=== PATIENT | male | born 1985 | race Caucasian/White ===

== ENCOUNTER 2022-04-17 07:28 | Day surgery (SDC) | payer OTHER ==
[~2022-04-17] VITALS: Ht 185.4 cm; Wt 146.0 kg
[2022-04-17] VITALS (169 sets, daily range): BP systolic 99–148; BP diastolic 48–94
--- NOTE | 2022-04-17 07:35 | NUR ---
PT AMBULATED TO ROOM WITH SPOUSE AND MOTHER. PT HAS NAD. PT HAS BEEN ORIENTED TO ROOM, CALL LIGHT AND POC. PT HAS NO QUESTIONS OR CONCERNS AT THIS SARA. PT HAS SAFTEY PRECAUTIONS IN PLACE. PT AWARE TO PUSH CALL LIGHT WHEN IN NEED OF ANY ASSITANCE. WILL CONTINUE TO MONITOR.
[2022-04-17 07:45] LABS: HEMOGLOBIN 14.1 g/dl (14.0-18.0); IMMATURE GRANULOCYTES 1.8 % (0.0-5.0); MEAN CELL VOLUME 88.8 fL CALC (80.0-100.0); MEAN CORPUSCULAR HGB 29.1 pG CALC (26.0-32.0); MEAN CORPUSCULAR HGB CONC 32.8 g/dL CAL (32.0-36.0); NEUT# 4.96 thou/uL (1.82-7.42); RED BLOOD COUNT 4.84 mill/uL (4.70-6.10); RED CELL DISTRI WIDTH 13.8 % (11.5-15.5)
[2022-04-17 07:58] LABS: ALBUMIN 3.9 g/dL (3.2-5.0); ALKALINE PHOSPHATASE 124 u/l (38-126); ANION GAP 9 (6-22 (CALC)); BILIRUBIN, TOTAL 0.5 mg/dL (0.0-1.4); BUN 18 mg/dL (9-20); BUN/CREATININE RATIO 16 (12-20 (CALC)); CARBON DIOXIDE 33 mmol/l (22-30); CHLORIDE 104 mmol/l (95-108); CREATININE 1.1 mg/dL (0.7-1.3); GFR FOR AFR.AMER. > 60 ML/MIN (>=60 (CALC)); GFR OTHER RACES > 60 ML/MIN (>=60 (CALC)); POTASSIUM 4.2 mmol/l (3.5-5.1); SGOT/AST 33 u/l (17-59); SODIUM 142 mmol/l (137-146)
[2022-04-17] MEDS ORDERED: CLONIDINE0.1 MG PO (10:42)
[2022-04-17] MEDS ORDERED: KLONOPIN2 MG PO (10:43)
[2022-04-17] MEDS ORDERED: NALTREXONE50 MG PO (10:43)
--- NOTE | 2022-04-17 11:50 | NUR ---
Induction Note Patient to ANR procedure room. Time out performed at 1150. Patient placed on monitors, Richi hugger, bilateral wrist restraints applied for ET tube protection. Versed 5mg given IV push at 1151 Tourniquet applied to RIGHT arm Lidocaine 100mg given at 1152 IV push followed by Rocoronium 10mg at 1153 IV push and held for 90 seconds. Propofol bolus of 120mg given at 1155 IV push. Succinylcholine 80mg given IV push at 1156. Smooth intubation with 8.0 ETT. Positive CO2. Positive Auscultation for air exchange. Patient placed on ventilator for spontaneous ventilation. Placed on Propofol IV drip at 1157. OG inserted. Positive air on auscultation. Positive gastric content. Stomach washed at this time.
--- NOTE | 2022-04-17 12:10 | NUR ---
OG close note Stomach washed at this time. Naltrexone 75 mg with Clonidine 0.2 mg via OG tube. OG will be clamped for 45 minutes.
--- NOTE | 2022-04-17 12:55 | NUR ---
OG open note OG open at this time. Gastric content draining into drainage bag. OG to drain for 45 minutes. Propofol will be titrated down based on patient.
--- NOTE | 2022-04-17 13:50 | NUR ---
OG close note Stomach washed at this time. Naltrexone 50 mg with Clonidine 0.3 mg via OG tube. OG will be clamped for 45 minutes.
--- NOTE | 2022-04-17 15:20 | NUR ---
OG close note Stomach washed at this time. Naltrexone 25 mg with Clonidine 0.2 mg via OG tube. OG will be clamped for 45 minutes.
--- NOTE | 2022-04-17 16:50 | NUR ---
OG close note Stomach washed at this time. Naltrexone 25 mg with Clonidine 0.3 mg via OG tube. OG will be clamped for 45 minutes.
--- NOTE | 2022-04-17 17:20 | NUR ---
Extubation note Closing medications given Benadryl 50mg IV push, Decadron 10mg IV push,Magnesium 4 grams IV, Zofran 8mg IV push, Octreotide 100mcg SC. Stomach washed out prior to extubation. Suctioned gastric content. OG removed. Patient extubated. Propofol Discontinued. Wrist restraints removed. Richi hugger Removed. See ANR Moderate sedate recovery record for further notes and assessment.
--- NOTE | 2022-04-17 17:40 | NUR ---
RECEIVE PATIENT AND REPORT FROM ARUNA ZAMUDIO. PATIENT IN CPAP 50%. OXIGEN LEVEL 94%. VITAL SIGNS STABLE AT THIS TIME. SAFETY AND FALL PRECAUTIONS IN PLACE. PATIENT CONTINUES TO BE MONITORED AT BEDSIDE.
--- NOTE | 2022-04-17 17:50 | NUR ---
PT TRANSFERRED TO ROOM WITH NONREBREATHER. PT O2 SAT 92%. RT MET IN ROOM AND PLACED PT ON CPAP 10 @ 50% PT AT 98%. PT IS AROUSABLE TO STIMULI. PT HAS FALL PRECAUTIONS IN PLACE. BED ALARM ACTIVE. REPORT GIVEN TO PM RN.
--- NOTE | 2022-04-17 19:11 | NUR ---
RESPIRATORY IN ROOM WITH PATIENT. PATIENT CURRENTLY OBSERVED ON CPAP. PATIENT CAME UP FROM PROCEDURE ON CPAP. INCREASED RESPIRATIONS AT TIMES. MD NOTIFED OF PATIENTS STATUS. PATIENT APPEARS WITH PERIODS OF APNEA. OXYGEN SATS DECREASE TO THE MID 50S. AFTER PATIENT IS INSTRUCTED TO REBREATHE, PATIENT SATS BACK UP TO 100%. ALERT, ABLE TO MAKE NEEDS KNOWN. MD DC CPAP. PATIENT ON O2 VIA NC, KEEP O2 SAT GREATER THAN OR EQUAL TO 90%. BED REMAINS IN LOW POSITION. BED ALARM ACTIVE FOR SAFETY REASONS.
--- NOTE | 2022-04-17 19:32 | NUR ---
PER TO PLACE CPAP ON STANDBY, CURRENTLY ON 4 LITERS OF OXYGEN.
--- NOTE | 2022-04-17 23:08 | NUR ---
CALLED MD AND UPDATED ON PATIENTS OXYGEN SATS DECREASING DUE TO APNEA. WHEN PATIENT IS REDIRECTED TO TAKE SLOW DEEP BREATHS OXYGEN SAT INCREASES. MD ADVISED FOR PATIENT TO TRY TO LAY ON HIS SIDE. NO NEW ORDERS AT THIS TIME.
--- NOTE | 2022-04-17 23:13 | NUR ---
CALLED RT ON PATIENTS STATUS. UPDATED THAT PATIENT REMAINS WITH PERIODS OF APNEA WITH OXYGEN SATS DECREASING AT TIMES. WHEN PATIENT IS INSTRUCTED TO REBREATHE OXYGEN GOES BACK UP TO HIGH 90S-100%.
--- NOTE | 2022-04-18 00:02 | NUR ---
PATIENT ON NONREBREATHER PER RT. OXYGEN SATURATIONS HAVE BEEN MAINTAINING. NO DISTRESS NOTED. PATIENT TOLERATING WELL.
--- NOTE | 2022-04-18 00:02 | NUR ---
SPOKE WITH RT ON PATIENTS STATUS STAYING THE SAME. PATIENT REMAINS ALERT AND ABLE TO MAKE NEEDS KNOWN. PATIENT APPEARS COMFORTABLE AT THIS TIME. BED REMAINS IN LOW POSITION. BED ALARM ACTIVE.
--- NOTE | 2022-04-18 01:19 | NUR ---
PATIENT ASKED TO USE THE RESTROOM IN ROOM. AMBULATED TO BATHROOM WITH SUPERVISION. VOIDED LARGE AMOUNT. PATIENT ASKED TO GO IN HIS LUGGAGE BAG TO PUT ON CLOTHES. REDIRECTED PATIENT THAT THEY WEAR GOWNS POST PROCEDURE DUE TO THE CHANCE OF NEEDING TO BE CLEANED UP DUE TOO POSSIBLE SOILING OR EMESIS. PATIENT UNDERSTOOD.
[2022-04-18 03:46] VITALS: BP 123/66
--- NOTE | 2022-04-18 03:49 | NUR ---
PATIENT SLEEPING ON HIS LEFT SIDE. NO SIGNS OF DISTRESS NOTED. VS REMAIN STABLE. REMAINS ON O2. BED REMAINS IN LOW POSITION. BED ALARM ACTIVE FOR SAFETY REASONS.
[2022-04-18 05:12] LABS: HEMATOCRIT 42.3 % (39.0-50.0); HEMOGLOBIN 14.3 g/dl (14.0-18.0); IMMATURE GRANULOCYTES 0.5 % (0.0-5.0); MEAN CELL VOLUME 84.6 fL CALC (80.0-100.0); MEAN CORPUSCULAR HGB 28.6 pG CALC (26.0-32.0); MEAN CORPUSCULAR HGB CONC 33.8 g/dL CAL (32.0-36.0); NEUT# 12.33 thou/uL (1.82-7.42); RED CELL DISTRI WIDTH 13.1 % (11.5-15.5)
[2022-04-18 05:36] LABS: ALBUMIN 3.4 g/dL (3.2-5.0); ALKALINE PHOSPHATASE 125 u/l (38-126); ANION GAP 10 (6-22 (CALC)); BUN 17 mg/dL (9-20); BUN/CREATININE RATIO 16 (12-20 (CALC)); CARBON DIOXIDE 27 mmol/l (22-30); CHLORIDE 106 mmol/l (95-108); GFR FOR AFR.AMER. > 60 ML/MIN (>=60 (CALC)); GFR OTHER RACES > 60 ML/MIN (>=60 (CALC)); MAGNESIUM 2.4 mg/dL (1.6-2.3); POTASSIUM 4.1 mmol/l (3.5-5.1); SGOT/AST 28 u/l (17-59); SODIUM 140 mmol/l (137-146); TOTAL PROTEIN 6.1 g/dL (6.3-8.2)
[2022-04-18 05:40] LABS: BILIRUBIN, TOTAL 0.8 mg/dL (0.0-1.4)
--- NOTE | 2022-04-18 06:29 | NUR ---
PATIENT REMAINS ON NONREBREATHER DUE TO PERIODS OF APNEA. OXYGEN SATS REMAIN STABLE. HR TENDS TO DECREASE BUT INCREASES ONCE PATIENT REBREATHES. WHEN PATIENT IS AWAKE HR SUSTAINS IN THE HIGH 80S. WILL CONTINUE TO MONITOR.
--- NOTE | 2022-04-18 07:55 | NUR ---
GOT REPORT FROM LIZZ ALMANZAR ON PATIENT. PATIENT IS AOX3. PATIENT ALSEEP AND ON A NON REBREATHER O2 STABLE BETWEEN 93-98%. HOB IS ELEVATED. PATIENT IS HAVING A MEDIUM AMOUNT OF MUCUS, PATIENT IS USING BEDSIDE SUCTION TO CLEAR OUT MOUTH. PATIENT HAS NO COMPLAINTS AT THIS TIME AND STATES THAT HE WANTS TO LEAVE NOW. I ADVISED PATIENT THAT WE ARE JUST WAITING FOR T[facility]UN TO GET HERE TO DO THE DISCHARGE AND TO CALL FAMILY. PATIENT VERBALIZED UNDERSTANDING.
[2022-04-18 08:00] VITALS: BP 126/62
== END 2022-04-18 11:15 | disposition home or self-care (01) | DRG 897 ==
LOC: ANR 07:28 → MS2 07:29 → ANR 08:00
PROVIDERS: ATTEND Anesthesiology
DX: F11.20 Opioid dependence, uncomplicated (principal)
CPT/HCPCS: J2354